=== PATIENT | male | born 1980 | race Two or more races ===

== ENCOUNTER 2021-04-06 11:17 | Inpatient (IN) | payer OTHER ==
[2021-04-06 13:03] VITALS: BMI 19.2
[2021-04-06] MEDS ORDERED: NICOTINE 10 MG CARTRIDGE (INHALER) IH PRN (15:26)
[2021-04-06] MEDS ORDERED: MAGNESIUM CITRATE 300 ML BOTTLE PO PRN (15:26)
[2021-04-06] MEDS ORDERED: NICOTINE POLACRILEX 2 MG GUM BUC PRN (15:26)
[2021-04-06] MEDS ORDERED: BISMUTH SUBSALICYLATE 524 MG/30 ML PO PRN (15:26)
[2021-04-06] MEDS ORDERED: MAG HYDROX/AL HYDROX/SIMETH 30 ML UNIT-DOSE CUP PO PRN (15:26)
[2021-04-06] MEDS ORDERED: ACETAMINOPHEN 325 MG TABLET (FP) PO PRN ×2 (15:26)
[2021-04-06] MEDS ORDERED: MENTHOL/PHENOL 1 EACH UD MM PRN (15:26)
[2021-04-06] MEDS ORDERED: IBUPROFEN 400 MG TABLET (FP) PO PRN (15:26)
[2021-04-06] MEDS ORDERED: cloNIDine HCL 0.1 MG TABLET PO PRN (15:26)
[2021-04-06] MEDS ORDERED: MAGNESIUM HYDROX 2400MG/30ML ORAL SUSPENSION 30 ML CUP PO PRN (15:26)
[2021-04-06] MEDS ORDERED: ONDANSETRON *ODT* 4 MG TABLET SL PRN (15:26)
[2021-04-06] MEDS ORDERED: LOPERAMIDE HCL 2 MG CAPSULE PO PRN (15:26)
[2021-04-06] MEDS ORDERED: METHOCARBAMOL 500 MG TABLET PO PRN (15:26)
[2021-04-06] MEDS ORDERED: methaDONE HCL 10 MG TABLET (FOR DETOX USE ONLY) PO ONE (17:30)
[2021-04-06] MEDS: hydrOXYzine PAMOATE 25 MG CAPSULE (FP) PO SCH ×2 (18:20→22:50)
[2021-04-06] MEDS ORDERED: diazePAM 5 MG TABLET PO PRN (18:57)
[2021-04-06] MEDS: MELATONIN 5 MG TABLETS PO SCH (22:50)
[2021-04-06] MEDS: THIAMINE HCL 100 MG TABLET (FP) PO SCH (22:51)
[2021-04-07] MEDS: hydrOXYzine PAMOATE 25 MG CAPSULE (FP) PO SCH ×5 (06:43→22:55)
[2021-04-07] MEDS ORDERED: NICOTINE 21 MG/24 HOURS TOPICAL PATCH TD SCH (10:00)
[2021-04-07] MEDS ORDERED: PRENATAL VITAMINS W/ FOLIC ACID TABLET (FP) PO SCH (10:00)
[2021-04-07] MEDS ORDERED: methaDONE HCL 10 MG TABLET (FOR DETOX USE ONLY) ONE (10:37)
[2021-04-07 14:07] LABS: SARS-CoV-2 NAA Not Detected (Not Detected)
[2021-04-07] MEDS: MELATONIN 5 MG TABLETS PO SCH (22:54)
[2021-04-07] MEDS: THIAMINE HCL 100 MG TABLET (FP) PO SCH (22:55)
[2021-04-08] MEDS: hydrOXYzine PAMOATE 25 MG CAPSULE (FP) PO SCH (05:30)
[2021-04-08 05:46] VITALS: BP 150/90; PULSE 78; TEMP 98
[2021-04-08] MEDS ORDERED: methaDONE HCL 10 MG TABLET (FOR DETOX USE ONLY) PO ONE (10:00)
[2021-04-10] MEDS ORDERED: methaDONE HCL 10 MG TABLET (FOR DETOX USE ONLY) PO ONE (10:00)
[2021-04-10 12:17] LABS: SARS-CoV-2 NAA Not Detected
== END 2021-04-08 07:55 | disposition left against medical advice (07) | DRG 770 ==
LOC: YASAS 11:17 → Y3N 16:27
PROVIDERS: ADMIT Allergy & Immunology; ATTEND Allergy & Immunology
PROC: HZ2ZZZZ Detoxification Services for Substance Abuse Treatment (ICD-10-PCS; principal; 2021-04-06)
DX: F11.23 Opioid dependence with withdrawal (principal); F14.20 Cocaine dependence, uncomplicated; F17.210 Nicotine dependence, cigarettes, uncomplicated; F51.05 Insomnia due to other mental disorder; F41.8 Other specified anxiety disorders; F32.A Depression, unspecified; R63.4 Abnormal weight loss; Z68.1 Body mass index [BMI] 19.9 or less, adult; Z59.00 Homelessness unspecified; Z56.0 Unemployment, unspecified
CPT/HCPCS: C9803; J0735; U0003; U0005

== ENCOUNTER 2023-11-08 16:29 | Inpatient (IN) | payer OTHER ==
[2023-11-08 17:05] VITALS: BMI 18.1
[2023-11-08] MEDS ORDERED: POLYETHYLENE GLYCOL (HEALTHYLAX) 3350 17 GM PACKET PO PRN (18:47)
[2023-11-08] MEDS ORDERED: BENZONATATE 200 MG CAPSULE PO PRN (18:47)
[2023-11-08] MEDS ORDERED: BENZOCAINE/MENTHOL (CHLORASEPTIC ) LOZENGE MM PRN (18:47)
[2023-11-08] MEDS ORDERED: MAG HYDROX/AL HYDROX/SIMETH 30 ML UNIT-DOSE CUP PO PRN (18:47)
[2023-11-08] MEDS ORDERED: guaiFENesin 600 MG TABLET.ER (FP) PO PRN (18:47)
[2023-11-08] MEDS ORDERED: BISMUTH SUBSALICYLATE 524 MG/30 ML PO PRN (18:47)
[2023-11-08] MEDS ORDERED: DICYCLOMINE HCL 10 MG CAPSULE PO PRN (18:47)
[2023-11-08] MEDS ORDERED: ACETAMINOPHEN 325 MG TABLET (FP) PO PRN (18:47)
[2023-11-08] MEDS ORDERED: NALOXONE (NARCAN) HCL 4 MG/0.1 ML SPRAY NS PRN (18:47)
[2023-11-08] MEDS ORDERED: IBUPROFEN 400 MG TABLET (FP) PO PRN (18:47)
[2023-11-08] MEDS ORDERED: LOPERAMIDE HCL 2 MG CAPSULE PO PRN (18:47)
[2023-11-08] MEDS ORDERED: NALOXONE HCL 0.4 MG/ML VIAL IM PRN (18:47)
[2023-11-08] MEDS ORDERED: MAGNESIUM HYDROX 2400MG/30ML ORAL SUSPENSION 30 ML CUP PO PRN (18:47)
[2023-11-08] MEDS: methaDONE HCL 10 MG TABLET PO ONE (19:15)
[2023-11-08] MEDS: methaDONE HCL 10 MG TABLET PO PRN (22:44)
[2023-11-08] MEDS: cloNIDine HCL 0.1 MG TABLET PO SCH (22:44)
[2023-11-08] MEDS: THIAMINE 100 MG TABLET PO SCH (22:47)
[2023-11-08] MEDS: diazePAM 5 MG TABLET PO PRN (22:47)
[2023-11-08] MEDS: MELATONIN 5 MG TABLETS PO SCH (22:49)
[2023-11-09] MEDS: IBUPROFEN 600 MG TABLET (FP) PO PRN (05:55)
[2023-11-09] MEDS: methaDONE 40 MG, methaDONE 10 MG PO ONE (10:01)
[2023-11-09] MEDS: NICOTINE 21 MG/24 HOURS TOPICAL PATCH TD SCH (10:02)
[2023-11-09] MEDS: PRENATAL VITAMINS W/ FOLIC ACID TABLET (FP) PO SCH (10:02)
[2023-11-09] MEDS: METHOCARBAMOL 500 MG TABLET PO PRN (19:20)
[2023-11-10] MEDS ORDERED: cloNIDine HCL 0.1 MG TABLET PO PRN
[2023-11-10] MEDS: methaDONE 40 MG, methaDONE 20 MG PO ONE (09:47)
[2023-11-10 14:24] LABS: HEMATOCRIT 44.6 % (35.4-49); HEMOGLOBIN 14.6 GM/dL (11.7-16.9); MCH 28.9 pg (25.7-33.7); MCHC 32.7 g/dl (32.0-35.9); MEAN CELL VOLUME 88.5 fl (80-96); MEAN PLT VOLUME 9.7 fl (7.5-11.1); PLATELET COUNT 224 10^3/uL (134-434); RBC 5.04 M/mm3 (4.00-5.60); RDW 15.3 % (11.9-15.9); WHITE BLOOD COUNT 5.4 K/mm3 (4.0-10.0)
[2023-11-10 14:42] LABS: POTASSIUM 5.1 mmol/L (3.5-5.1)
[2023-11-10 14:55] LABS: CALCIUM 9.4 mg/dL (8.5-10.1)
[2023-11-10 14:56] LABS: ALBUMIN 3.3 g/dl (3.4-5.0)
[2023-11-10 14:59] LABS: CREATININE 0.9 mg/dL (0.55-1.3)
[2023-11-10 15:02] LABS: TOT PROT 6.6 g/dl (6.4-8.2)
[2023-11-10 15:15] LABS: BILIRUBIN,TOTAL 0.9 mg/dL (0.2-1)
[2023-11-10] MEDS: ONDANSETRON *ODT* 4 MG TABLET SL PRN (16:48)
[2023-11-11] MEDS: methaDONE 40 MG, methaDONE 30 MG PO ONE (10:35)
[2023-11-11] MEDS: hydrOXYzine PAMOATE 25 MG CAPSULE (FP) PO PRN (22:17)
[2023-11-12] MEDS: methaDONE HCL 40 MG DISPERSABLE TABLET PO ONE (09:50)
[2023-11-12] MEDS ORDERED: diazePAM 5 MG TABLET PO PRN (11:56)
[2023-11-13] MEDS ORDERED: methaDONE HCL 10 MG TABLET PO SCH (06:00)
[2023-11-13] MEDS: methaDONE 40 MG, methaDONE 20 MG PO SCH (06:20)
[2023-11-13] MEDS: methaDONE HCL 10 MG TABLET PO ONE (07:54)
[2023-11-13 09:43] VITALS: BP 148/76; PULSE 67; RESP 18; TEMP 97.6
== END 2023-11-13 09:30 | disposition other institution (70) | DRG 773 ==
LOC: YASAS 16:29 → SUATTDRO 16:29 → Y6N 19:05
PROVIDERS: ADMIT Allergy & Immunology; ATTEND Surgery
PROC: HZ2ZZZZ Detoxification Services for Substance Abuse Treatment (ICD-10-PCS; principal; 2023-11-08)
DX: F11.23 Opioid dependence with withdrawal (principal); F14.20 Cocaine dependence, uncomplicated; F17.210 Nicotine dependence, cigarettes, uncomplicated; F43.10 Post-traumatic stress disorder, unspecified; F41.9 Anxiety disorder, unspecified; R63.4 Abnormal weight loss; Z68.1 Body mass index [BMI] 19.9 or less, adult
CPT/HCPCS: 36415; 80053; 85027; 86780; 93005; 93010; Q0162